=== PATIENT | male | born 2000 | race Two or more races ===

== ENCOUNTER → 2021-08-12 | Emergency (ER) | payer OTHER ==
[~2021-08-12] VITALS: Ht 162.6 cm; Wt 74.0 kg
[~2021-08-12] MED LIST: AMOX1TAB11 PO; KETOROLAC 60 MG/2 ML VIAL. IM ONE
[2021-08-12 16:58] VITALS: BP 122/78
--- NOTE | 2021-08-12 17:21 | RAD ---
XR FINGER(S)_RIGHT 2+VIEWS History: Reason: crush injury digit 3 / Spl. Instructions: / History: Pain Technique: PA view the hand and 2 additional views of the third digit. Comparison: None. Findings: Acute comminuted mildly displaced third distal tuft fracture. There is adjacent soft tissue swelling. No dislocation. Impression: 1. Acute comminuted right third distal tuft fracture. Electronically signed by: John Paul Marie DO (08/12/2021 5:19 PM) [facility]
--- NOTE | 2021-08-12 17:27 | PHYS DOC ---
Past History Additional Past Medical Histor: ACL TEAR (PINEDA GA) Past Surgical History: Other Additional Past Surgical Histo: ACL REPAIR (PINEDA GA) General Adult EDM: Chief Complaint: FINGER INJURY HPI: HPI: Patient is a 20 year old male who presents with crush injury to his right middle finger. Patient states that the finger was crushed in a car door, which then locked. His finger remained closed in the door till the door was able to be unlocked and opened. Patient reports distal digit 3 tenderness and swelling with some bleeding from around his fingernail. He denies all other injury and pain. He has no other complaints at this time. (PINEDA GA) Review of Systems: Review of Systems: ROS negative or noncontributory except as mentioned in HPI. (PINEDA GA) Current Medications: Current Meds: Current Medications Medications (Trade) Dose Ordered Sig/Gerald Start Time Stop Time Status Last Admin Dose Admin Ketorolac Tromethamine (Toradol Im) 60 mg 1X ONCE 08/12/21 17:00 08/12/21 17:01 DC 08/12/21 17:12 60 MG (PINEDA GA) Allergies: Allergies: Allergies Coded Allergies Type Severity Reaction Last Updated Verified No Known Drug Allergies 08/12/21 No (PINEDA GA) Physical Exam: PE: Constitutional: Well developed, well nourished, no acute distress, non-toxic appearance. Skin: No obvious lacerations noted on right hand, including digit 3. Skin otherwise warm, dry, no erythema, no rash. Extremities: Right digit 3 tender distal to the DIP joint with swelling and subungual hematoma, there is dried blood surrounding the fingernail. Extremities otherwise no tenderness, no cyanosis, no clubbing, ROM intact, no edema. Neurologic: Alert and oriented x4, no focal deficits noted. (PINEDA GA) Current Patient Data: Vital Signs: Vital Signs Date Time Temp Pulse Resp B/P (MAP) Pulse Ox O2 Delivery O2 Flow Rate FiO2 08/12/21 16:58 97.9 81 18 122/78 (93) 98 Room Air (PINEDA GA) Radiology/Procedures: Radiology/Procedures: PROCEDURE: FINGER(S) RIGHT XR FINGER(S)_RIGHT 2+VIEWS History: Reason: crush injury digit 3 / Spl. Instructions: / History: Pain Technique: PA view the hand and 2 additional views of the third digit. Comparison: None. Findings: Acute comminuted mildly displaced third distal tuft fracture. There is adjacent soft tissue swelling. No dislocation. Impression: 1. Acute comminuted right third distal tuft fracture. Electronically signed by: John Paul Marie DO (08/12/2021 5:19 PM) [facility] (PINEDA GA) Heart Score: C/O Chest Pain: No (PINEDA GA) Course & Med Decision Making: Course & Med Decision Making Pertinent Labs and Imaging studies reviewed. (See chart for details) Plain films obtained of injured hand. Subungual hematoma drained using a cauterizing pen to create a hole in the fingernail near the center of the subungual hematoma. Swelling and tenderness somewhat improved afterward. Finger was placed in an aluminum splint and wrapped. Orthopedic follow-up contact information and return precautions provided. Antibiotics were prescribed. Patient understands and is agreeable to discharge plan. (PINEDA GA) Dragon Disclaimer: Dragon Disclaimer: This electronic medical record was generated, in whole or in part, using a voice recognition dictation system. (PINEDA GA) Attending Co-Sign The patient was seen and interviewed as well as examined at the bedside. The chart was reviewed. The case was discussed. Agree with the plan of care. (CAROLANN VÁZQUEZ DO) Departure Departure: Impression: Primary Impression: Crushing injury of finger of right hand Additional Impressions: Subungual hematoma of finger of right hand Qualified Codes: S60.10XA - Contusion of unspecified finger with damage to nail, initial encounter Phalanx, distal fracture of finger Qualified Codes: S62.632B - Displaced fracture of distal phalanx of right middle finger, initial encounter for open fracture Disposition: 01 HOME / SELF CARE / HOMELESS Condition: IMPROVED Referrals: IVY CHRISTINE DO (PCP) Patient Instructions: Finger Fracture, [id number] Additional Instructions: [facility] orthopedics EMERGENCY DEPARTMENT GENERAL DISCHARGE INSTRUCTIONS Thank you for coming to [facility] (ED) today and trusting us with you care. We trust that you had a positive experience in our Emergency Department. If you wish to speak to the department management, you may call the director at [phone]. YOUR FOLLOW UP INSTRUCTIONS ARE FOLLOWS: 1. Follow up with your primary care doctor. If you do not have a primary doctor, please ask for a resource list of physicians or clinics that may be able to assist you with follow up care. 2. The emergency provider has interpreted your imaging studies, if any were ordered. The radiology assistance specialist also reviewed them. If there is a change in the findings, you will be notified in 48 hours when at all possible. 3. If a lab test or culture has been done, your results will be reviewed and you will be notified if you need a change in treatment. 4. Follow instructions verbalized to you and refer to the printouts if needed. ADDITIONAL INSTRUCTIONS AND INFORMATION: 1. Your care today has been supervised by a physician who is specially trained in emergency care. Many problems require more than one evaluation for a complete diagnosis and treatment. We recommend that you schedule your follow up appointment as recommended to ensure complete treatment of you illness or injury. If you are unable to obtain follow up care and continue to have a problem, or if your condition worsens, we recommend that you return to the ED. 2. We are not able to safely determine your condition over the phone nor are we able to give sound medical advice over the phone. For these safety reasons, if you call for medical advice we will ask you to come to the ED for further evaluation. 3. If you have any questions regarding these discharge instructions please call the ED at [phone]. SAFETY INFORMATION: In the interest of safety, wellness, and injury prevention; we encourage you to wear your seat belt, if you smoke; quite smoking, and we encourage family to use a protective helmet for bicycling and other sporting events that present an increased risk for head injury. IF YOUR SYMPTOMS WORSEN OR NEW SYMPTOMS DEVELOP, OR YOU HAVE CONCERNS ABOUT YOUR CONDITION; OR IF YOUR CONDITION WORSENS WHILE YOU ARE WAITING FOR YOUR FOLLOW UP APPOINTMENT; EITHER CONTACT YOUR PRIMARY CARE DOCTOR, THE PHYSICIAN WHOSE NAME AND NUMBER YOU WERE GIVEN, OR RETURN TO THE ED IMMEDIATELY. Scripts Amoxicillin/Potassium Clav (AMOX TR-K CLV 875-125 MG TAB) 1 Each Tablet 1 TAB PO BID for open fx, #20 TAB Prov: PINEDA GA 08/12/21 PINEDA GA Aug 12, 2021 17:27 CAROLANN VÁZQUEZ DO Aug 13, 2021 06:09
== END ==
LOC: ER 16:36
DX: S62.632B Displaced fracture of distal phalanx of right middle finger, initial encounter for open fracture (principal); S60.131A Contusion of right middle finger with damage to nail, initial encounter; W23.0XXA Caught, crushed, jammed, or pinched between moving objects, initial encounter; Y93.89 Activity, other specified; Y92.89 Other specified places as the place of occurrence of the external cause; Y99.8 Other external cause status
CPT/HCPCS: 11740; 73140; 99284; J1885